=== PATIENT | female | born 1980 | race Caucasian/White ===

== ENCOUNTER 2020-10-30 04:11 | Emergency (ER) | payer OTHER ==
[2020-10-30] MEDS ORDERED: TORAdol 30 mg Injection IV ONE (04:38)
[2020-10-30] MEDS ORDERED: Sodium Chloride 0.9% 1000 ML 1,000 ML IV STA (04:38)
[2020-10-30] MEDS ORDERED: Sodium Chloride 0.9% 1000 ML 1,000 ML ONE (04:42)
[2020-10-30] MEDS ORDERED: TORAdol 30 mg Injection ONE (04:42)
--- NOTE | 2020-10-30 04:43 | ERPHSYRPT ---
- History of Present Illness Time Seen by Provider: 10/30/20 04:40 Source: patient Exam Limitations: no limitations Patient Subjective Stated Complaint: pt states she has been having pain in her rt lower back around midnight. states pain is intermittent Triage Nursing Assessment: pt alert and oriented, answers questions approp. pt ambulatory with steady gait noted. respirations nonlabored with lungs cta. skin pink warm and dry. abd soft and nontender to light palpation. Physician History: pt states she has been having pain in her rt lower back around midnight. states pain is intermittent. Patient has recent UTI. treated with abx Timing/Duration: today Activites at Onset: none Quality: dullness Onset Location: right flank Severity of Pain-Max: moderate Severity of Pain-Current: moderate Prior abdominal problems: none Sexual intercourse history: non-contributory Modifying Factors: Improves With: nothing Associated Symptoms: denies symptoms Allergies/Adverse Reactions: amoxicillin Allergy (Intermediate, Verified 10/30/20 04:37) Rash guaifenesin Allergy (Intermediate, Verified 10/30/20 04:37) nitrofurantoin [From Macrobid] Allergy (Intermediate, Verified 10/30/20 04:37) Rash sulfamethoxazole [From Bactrim] Allergy (Intermediate, Verified 10/30/20 04:37) Rash trimethoprim [From Bactrim] Allergy (Intermediate, Verified 10/30/20 04:37) Rash Home Medications: Tamsulosin HCl 0.4 mg [Flomax 0.4 MG] 0.4 mg PO DAILY 10/30/20 [History] Hx Tetanus, Diphtheria Vaccination/Date Given: Yes Hx Influenza Vaccination/Date Given: No Hx Pneumococcal Vaccination/Date Given: No Travel Risk - International Travel Have you traveled outside of the country in past 3 weeks: No - Coronavirus Screening Are you exhibiting any of the following symptoms?: No Close contact with a COVID-19 positive Pt in past 14-21 Days: No - Vaccine Status Have you recieved a Covid-19 vaccination: Yes Night Filler: Moderna - Vaccination Dates Date of 2cond Vaccination (if applicable): 06/17/20 - Review of Systems Constitutional: No Fever, No Chills Eyes: No Symptoms Ears, Nose, & Throat: No Symptoms Respiratory: No Cough, No Dyspnea Cardiac: No Chest Pain, No Edema, No Syncope Abdominal/Gastrointestinal: No Abdominal Pain, No Nausea, No Vomiting, No Diarrhea Genitourinary Symptoms: Flank Pain (right side), No Dysuria, No Hematuria, No Hesitancy Musculoskeletal: No Back Pain, No Neck Pain Skin: No Rash Neurological: No Dizziness, No Focal Weakness, No Sensory Changes Psychological: No Symptoms Endocrine: No Symptoms All Other Systems: Reviewed and Negative - Past Medical History Pertinent Past Medical History: No - Past Surgical History Past Surgical History: Yes Female Surgical History: Section Other Surgical History: c section x2 - Social History Smoking Status: Never smoker Exposure to second hand smoke: No Drug Use: none Patient Lives Alone: No - Female History Hx Last Menstrual Period: 3mos- bc Hx Now: No - Nursing Vital Signs Nursing Vital Signs: Initial Vital Signs Temperature 97.6 F 10/30/20 04:21 Pulse Rate 101 H 10/30/20 04:21 Respiratory Rate 16 10/30/20 04:21 Blood Pressure 131/96 10/30/20 04:21 O2 Sat by Pulse Oximetry 98 10/30/20 04:21 Pain Scale Pain Intensity 5 - Physical Exam General Appearance: no apparent distress, alert Eye Exam: PERRL/EOMI, eyes nml inspection Ears, Nose, Throat Exam: normal ENT inspection, TMs normal, pharynx normal, moist mucous membranes Neck Exam: normal inspection, non-tender, supple, full range of motion Respiratory Exam: normal breath sounds, lungs clear, No respiratory distress Cardiovascular Exam: regular rate/rhythm, normal heart sounds, normal peripheral pulses Gastrointestinal/Abdomen Exam: soft, tenderness (right side CVA), No mass Back Exam: normal inspection, normal range of motion, No CVA tenderness, No vertebral tenderness Extremity Exam: normal inspection, normal range of motion, pelvis stable Neurologic Exam: alert, oriented x 3, cooperative, 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, normal mood/affect, sensation nml, No motor deficits Skin Exam: normal color, warm, dry Lymphatic Exam: No adenopathy SpO2: 98 - Course Nursing assessment & vital signs reviewed: Yes - CT Exams Abdomen/Pelvis CT Interpretation: Tele-radiologist Report (0.7 cms Posterior bladder stone, right hydronephrosis) Ordered Tests: Active Orders 24 hr Category Date Time Status ABDOMEN AND PELVIS W/0 CONTRAS [CT] Stat Exams 10/30/20 04:39 Taken AMYLASE Stat Lab 10/30/20 04:45 Completed CBC W DIFF Stat Lab 10/30/20 04:45 Completed CMP Stat Lab 10/30/20 04:45 Completed CULTURE,URINE Stat Lab 10/30/20 04:39 Received UA W/RFX UR CULTURE Stat Lab 10/30/20 04:39 Completed Medication Summary Discontinued Medications Generic Name Dose Route Start Last Admin Trade Name Josh PRN Reason Stop Dose Admin Sodium Chloride 1,000 mls @ 999 mls/hr 10/30/20 04:38 10/30/20 04:45 Sodium Chloride 0.9% 1000 Ml IV 10/30/20 05:38 999 mls/hr .Q1H1M STA Administration Sodium Chloride Confirm 10/30/20 04:42 Sodium Chloride 0.9% 1000 Ml Administered 10/30/20 04:43 Dose 1,000 mls @ ud .ROUTE .STK-MED ONE Ceftriaxone Sodium/Dextrose 1 g in 50 mls @ 100 mls/hr 10/30/20 06:15 10/30/20 06:24 Rocephin 1 Gm-D5w 50 Ml Bag IV 10/30/20 06:44 100 ml/hr STAT STA 100 mls/hr Administration Ceftriaxone Sodium/Dextrose Confirm 10/30/20 06:18 Rocephin 1 Gm-D5w 50 Ml Bag Administered 10/30/20 06:19 Dose 1 g in 50 mls @ ud IV .STK-MED ONE Ketorolac Tromethamine 30 mg 10/30/20 04:38 10/30/20 04:46 Toradol 30 Mg Injection IV 10/30/20 04:39 30 mg STAT ONE Administration Ketorolac Tromethamine Confirm 10/30/20 04:42 Toradol 30 Mg Injection Administered 10/30/20 04:43 Dose 30 mg .ROUTE .STK-MED ONE Ondansetron HCl 4 mg 10/30/20 06:46 10/30/20 06:48 Zofran 4 Mg/2 Ml Vial IV 10/30/20 06:47 4 mg STAT ONE Administration Ondansetron HCl Confirm 10/30/20 06:47 Zofran 4 Mg/2 Ml Vial Administered 10/30/20 06:48 Dose 4 mg .ROUTE .STK-MED ONE Lab/Rad Data: Laboratory Result Diagrams 10/30/20 04:45 10/30/20 04:45 Laboratory Results 10/30/20 10/30/20 10/30/20 Range/Units 04:45 04:45 04:39 WBC 12.5 H (4.0-10.5) K/mm3 RBC 4.37 (4.1-5.4) M/mm3 Hgb 11.9 L (12.0-16.0) gm/dl Hct 37.6 (35-47) % MCV 86.0 (78-100) fl MCH 27.2 (26-32) pg MCHC 31.6 L (32-36) g/dl RDW 13.3 (11.5-14.0) % Plt Count 554 H (150-450) K/mm3 MPV 8.7 (7.5-11.0) fl Gran % 82.7 H (36.0-66.0) % Eos # (Auto) 0.17 (0-0.5) Absolute Lymphs (auto) 1.16 (1.0-4.6) Absolute Monos (auto) 0.78 (0.0-1.3) Lymphocytes % 9.3 L (24.0-44.0) % Monocytes % 6.3 (0.0-12.0) % Eosinophils % 1.4 (0.00-5.0) % Basophils % 0.3 (0.0-0.4) % Absolute Granulocytes 10.30 H (1.4-6.9) Basophils # 0.04 (0-0.4) Sodium 135 L (137-145) mmol/L Potassium 3.9 (3.5-5.1) mmol/L Chloride 100 (98-107) mmol/L Carbon Dioxide 23 (22-30) mmol/L Anion Gap 16.0 H (5-15) MEQ/L BUN 22 H (7-17) mg/dL Creatinine 1.24 H (0.52-1.04) mg/dL Estimated GFR 51.2 ML/MIN Glucose 105 (74-106) mg/dL Calcium 9.5 (8.4-10.2) mg/dL Total Bilirubin 0.50 (0.2-1.3) mg/dL AST 31 (14-36) U/L ALT 19 (0-35) U/L Alkaline Phosphatase 63 (38-126) U/L Serum Total Protein 7.9 (6.3-8.2) g/dL Albumin 4.6 (3.5-5.0) g/dL Amylase 64 (30-110) U/L Urine Color YELLOW (YELLOW) Urine Appearance CLOUDY (CLEAR) Urine pH 6.0 (5-6) Ur Specific [place] 1.032 (1.005-1.025) Urine Protein >=500 (Negative) Urine Ketones TRACE (NEGATIVE) Urine Blood SMALL (0-5) [place]/ul Urine Nitrite NEGATIVE (NEGATIVE) Urine Bilirubin NEGATIVE (NEGATIVE) Urine Urobilinogen NEGATIVE (0-1) mg/dL Ur Leukocyte Esterase TRACE (NEGATIVE) Urine WBC (Auto) 16-25 (0-5) /HPF Urine RBC (Auto) 51-100 (0-2) /HPF U Epithel Cells (Auto) RARE (FEW) /HPF Urine Bacteria (Auto) RARE (NEGATIVE) /HPF Amorphous Crystals FEW (NEGATIVE) /HPF Urine Mucus (Auto) SLIGHT (NEGATIVE) /HPF Urine Culture Reflexed YES (NO) Urine Glucose NEGATIVE (NEGATIVE) mg/dL - Progress Progress: improved Air Movement: good Blood Culture(s) Obtained: No Antibiotics given: Yes Counseled pt/family regarding: lab results, diagnosis, need for follow-up, rad results - Departure Departure Disposition: Home Clinical Impression: Urinary bladder stone, Hydronephrosis concurrent with and due to calculi of kidney and ureter, Lung nodule seen on imaging study Condition: Stable Critical Care Time: No Referrals: BHARGAV TRAVIS MD [Primary Care Provider] - Follow Up with PCP/3 days Instructions: Kidney Stones (DC), Flank Pain Additional Instructions: Discharge/Care Plan ONELIA LOTT was seen on 10/30/20 in the Emergency Room. The patient was counseled regarding Diagnosis,Lab results, Imaging studies, need for follow up and when to return to the Emergency Room. Prescriptions given: Discharge Note I have spoken with the patient and/or caregivers. I have explained the patient's condition, diagnosis and treatment plan based on the information available to me at this time. I have answered the patient's and/or caregiver's questions and addressed any concerns. The patient and/or caregivers have as good understanding of the patient's diagnosis, condition and treatment plan as can be expected at this point. The vital signs have been stable. The patient's condition is stable and appropriate for discharge from the emergency department. The patient will pursue further outpatient evaluation with the primary care physician or other designated or consulting physician as outlined in the discharge instructions. The patient and/or caregivers are agreeable to this plan of care and follow-up instructions have been explained in detail. The patient and/or caregivers have received these instruction. The patient/and or caregivers are aware that any significant change in condition or worsening of symptoms should prompt an immediate return to this or the closest emergency department or call 911. ONELIA LOTT was seen on 10/30/20 n the Emergency Room. At that time you were treated for an emergent condition, during your visit Laboratory, Radiology and/or other procedures may have been ordered. It is very important that you follow-up with your Primary Care Physician BHARGAV TRAVIS within the next 24-48 hours to review your Emergency Room visit and the final results of testing that was ordered. Some test results such as Urine Cultures, Blood Cultures, and other cultures if ordered will not be finalized for 24-48 hours. If you do not have a Primary Care Provider please call the medical records department at [phone] ext [phone] to obtain a copy of your results or you may sign into our patient portal to obtain these results by visiting us @ [email or web address] and completing the following steps: 1. Click on the Patient Portal link 2. Click the Patient Self Enrollment Link to complete the enrollment form and entering your 3. Once the enrollment form is completed you will receive an email with a temporary ID and password at the email address you provided. 4. Next choose a user name and password. Your user name must be at least 4 jefferson cters long and your password must be at least 4 characters long. 5. Choose a security question from the list and provide your answer to the question. If you already have signed into the Health Portal you may access your Health Care Information 04/12 by the following steps: 1. Login to our website @ [email or web address] 2. Enter your original user name and password. FAQS The [facility] Health Portal is an online tool that contains your Lab Results, Radiology Reports, Visit History, Discharge Instructions and Health Summary Lab and Radiology Results will not be available for 72 hours on the portal. The Portal is a secure site, passwords are encryted and URLs are re-written so they cannot be copied and pasted. You and authorized family members are the only ones who can access your Portal. Also there is a timeout feature that protects your information if you leave the Portal page open. If you have technical difficulty please use the Contact Us link on the page this will allow you to submit any questions you have regarding the Portal or you may contact the Medical Record Department at [phone]. Prescriptions: Ciprofloxacin [Cipro 500 MG] 500 mg PO BIDAC #20 tablet Ondansetron ODT 4 MG [Zofran Odt 4 mg] 4 mg PO Q6H PRN PRN #20 tab.rapdis PRN Reason: Nausea
[2020-10-30 04:55] LABS: BASOPHIL % 0.3 % (0.0-0.4); Basophil (Absolute #) 0.04 (0-0.4); Eosinophil % 1.4 % (0.00-5.0); Eosinophil (Absolute #) 0.17 (0-0.5); Hematocrit 37.6 % (35-47); Hemoglobin 11.9 gm/dl (12.0-16.0); Lymphocyte (Absolute #) 1.16 (1.0-4.6); Lymphocytes % 9.3 % (24.0-44.0); Mean Corpuscular Hemoglobin 27.2 pg (26-32); Mean Corpuscular Hgb Concent. 31.6 g/dl (32-36); Mean Platelet Volume 8.7 fl (7.5-11.0); Monocyte (Absolute #) 0.78 (0.0-1.3); Monocytes % 6.3 % (0.0-12.0); Neutrophil % 82.7 % (36.0-66.0); Platelet Count 554 K/mm3 (150-450); Red Blood Count 4.37 M/mm3 (4.1-5.4); Red Cell Distribution Width 13.3 % (11.5-14.0); White Blood Count 12.5 K/mm3 (4.0-10.5)
[2020-10-30 05:06] LABS: Amourphous Crystal FEW /HPF (NEGATIVE); Appearance CLOUDY (CLEAR); Bacteria RARE /HPF (NEGATIVE); Bilirubin NEGATIVE (NEGATIVE); Blood SMALL Ery/ul (0-5); Epithelial Cells RARE /HPF (FEW); Glucose NEGATIVE (NEGATIVE); Ketones TRACE (NEGATIVE); Leukocyte Esterase TRACE (NEGATIVE); Mucus SLIGHT /HPF (NEGATIVE); Nitrite NEGATIVE (NEGATIVE); Protein,Urine Dip >=500 (Negative); RBC 51-100 /HPF (0-2); Specific Gravity 1.032 (1.005-1.025); Urobilinogen NEGATIVE mg/dL (0-1)
[2020-10-30 05:18] LABS: ALBUMIN 4.6 g/dL (3.5-5.0); BILIRUBIN,TOTAL 0.5 mg/dL (0.2-1.3); Calcium 9.5 mg/dL (8.4-10.2); Creatinine 1 1.24 mg/dL (0.52-1.04); EST GLOMERULAR FILTRATION RATE 51.2 ML/MIN; Potassium 3.9 mmol/L (3.5-5.1); Total Protein 7.9 g/dL (6.3-8.2)
[2020-10-30] MEDS ORDERED: ROCEPHIN 1 Gm-D5w 50 ml Bag** 1 G/50 ML IVPB IV STA (06:15)
[2020-10-30] MEDS ORDERED: ROCEPHIN 1 Gm-D5w 50 ml Bag** 1 G/50 ML IVPB IV ONE (06:18)
[2020-10-30] MEDS ORDERED: Zofran 4 MG/2 ML VIAL IV ONE (06:46)
[2020-10-30] MEDS ORDERED: Zofran 4 MG/2 ML VIAL ONE (06:47)
[2020-10-30 06:53] VITALS: BP 117/87; PULSE 79; O2SAT 99
--- NOTE | 2020-10-30 07:51 | XRAY ---
Indication: Right flank/suprapubic pain 2 weeks. Frequent urination. UTI. Multiple contiguous axial images obtained through the abdomen and pelvis without contrast using renal stone protocol. Comparison: None Lung bases demonstrates incompletely visualized 1 cm right middle lobe subpleural noncalcified nodule. No infiltrate or effusion. Heart not enlarged. There is a 7 mm urinary bladder calculus adjacent to the UVJ. Right ureter is distended up to 1.4 cm along with moderate hydronephrosis and mild renal edema consistent with obstructive uropathy. No perinephric fluid. Noncontrasted stomach and bowel loops nonobstructed. Normal appendix. No free fluid/air. Remaining liver, gallbladder, pancreas, spleen, adrenal glands, left kidney, left ureter, urinary bladder, uterus, and aorta unremarkable for noncontrast exam. Osseous structures intact. Impression: 1. 7 mm right urinary bladder calculus with right-sided hydronephrosis and hydroureter. 2. Incompletely visualized indeterminant 1 cm right middle lobe noncalcified nodule. Outside comparison studies recommended if available. If not, consider CT chest to establish Baseline with follow-up per Fleischner guidelines. Comment: Preliminary interpretation was made by [facility]. No critical discrepancy.
== END 2020-10-30 07:04 | disposition home or self-care (01) ==
LOC: ED 04:11
DX: N21.0 Calculus in bladder (principal); N13.30 Unspecified hydronephrosis; N20.2 Calculus of kidney with calculus of ureter; R91.1 Solitary pulmonary nodule
CPT/HCPCS: 36000; 36415; 74176; 80053; 81001; 82150; 85025; 87086; 96360; 96365; 96374; 96375; 99284; J0696; J1885; J2405